=== PATIENT | male | born 1975 | race Caucasian/White ===

== ENCOUNTER 2021-07-27 11:27 | Outpatient (CLI) | payer OTHER, SELFPAY ==
[2021-07-27] VITALS (7 sets, daily range): BP systolic 116–156; BP diastolic 62–110; PULSE 49–75; RESP 16; TEMP 36.8–37.1; O2SAT 98–100; BMI 33.8
--- NOTE | 2021-07-27 11:51 | NURSING ---
AFTER STARTING IV, PT BECAME PALE, PASSED OUT. HEAD LOWERED, FEEL ELEVATED. PT WAS ONLY OUT FOR A FEW SECONDS. SEE VS. PRESSURES DROPPED.
[2021-07-27] MEDS: 0.9% Saline Lock 10 ML Syringe IV (12:00)
== END 2021-07-27 23:59 | disposition home or self-care (01) ==
LOC: MS3OUT 11:30 → MS3 11:30
PROVIDERS: PCP Family Medicine; Referring Provider Nurse Practitioner Adult Health; Visit Provider Nurse Practitioner Adult Health
DX: Z23 Encounter for immunization (principal); U07.1 COVID-19
CPT/HCPCS: J7050; M0243; A4216; Q0244